=== PATIENT | male | born 1990 | race Caucasian/White ===

== ENCOUNTER 2016-10-20 18:18 | Emergency (ER) | payer OTHER ==
[~2016-10-20] VITALS: Ht 180.3 cm; Wt 136.0 kg
--- NOTE | 2016-10-20 19:24 | REP ---
PA and lateral chest: There are no comparisons. The lung farmer are clear. The cardiac size is normal The adolfo, mediastinum, and bony thorax are unremarkable. Impression: Negative PA and lateral chest. Signed by Silvio Chávez MD 10/20/2016 07:15 P
[2016-10-20] MEDS ORDERED: KETOROLAC 30 MG/ML VIAL (J1885) IV ONE (19:45)
[2016-10-20 19:50] LABS: BASO # 0.1 K/mm3 (0.0-0.2); BASO % 0.5 % (0.0-1.0); EOS # 0.3 K/mm3 (0.0-0.50); EOS % 2.4 % (0.0-3.0); LARGE UNSTAINED CELL # 0.1 K/mm3 (0.0-0.4); LARGE UNSTAINED CELL % 0.8 % (0.0-4.0); LYMPH # 1.7 K/mm3 (1.5-6.5); LYMPH % 12.2 % (24.0-44.0); MEAN CORPUSCULAR HGB CONC 34.7 g/dl (32.0-36.5); MEAN CORPUSCULAR VOLUME 83.6 fl (80.0-96.0); MONO # 0.5 K/mm3 (0.0-0.8); NEUTROPHILS # 10.7 K/mm3 (1.8-7.7); NEUTROPHILS % 80.1 % (36.0-66.0); PLATELET COUNT, AUTOMATED 225 k/mm3 (150-450); RED CELL DISTRIBUTION WIDTH 13.7 % (11.5-14.5); WHITE BLOOD COUNT 13.4 K/mm3 (4.0-10.0)
[2016-10-20 20:17] LABS: ANION GAP 6 MEQ/L (8-16); BLOOD UREA NITROGEN 7 MG/DL (7-18); CALCIUM LEVEL 8.7 MG/DL (8.5-10.1); CARBON DIOXIDE LEVEL 26 MEQ/L (21-32); CHLORIDE LEVEL 103 MEQ/L (98-107); CREATININE FOR GFR 0.88 MG/DL (0.70-1.30); GLOMERULAR FILTRATION RATE > 60.0 (>60); GLUCOSE, FASTING 103 MG/DL (70-105); POTASSIUM SERUM 3.4 MEQ/L (3.5-5.1); SODIUM LEVEL 135 MEQ/L (136-145)
[2016-10-20 21:15] LABS: ABG BASE EXCESS 0.2 (-2.0-2.0); ABG HCO3 23.6 MEQ/L (22.0-26.0); ABG PARTIAL PRESSURE CO2 34.8 mmHg (35.0-45.0); ABG PARTIAL PRESSURE O2 71.6 mmHg (75.0-100.0); ABG STANDARD HCO3 24.6 MEQ/L (22.0-26.0); ABG TOTAL CO2 24.7 MEQ/L (22.0-29.0)
[2016-10-20] MEDS ORDERED: ISOVUE-370 76% 100ML VIAL (Q9967) As Ordered ONE (22:42)
--- NOTE | 2016-10-20 23:10 | REPUSA ---
CT angiogram of the chest Clinical statement: dyspnea. Technique: Multiple axial CT images were obtained from the thoracic inlet through the upper abdomen a fter a bolus administration of nonionic intravenous contrast. Coronal and sagittal reconstructions we re also obtained. Comparison: None. Findings: The pulmonary arteries are well-opacified with contrast, with no intraluminal filling defec ts to suggest embolism. The thoracic aorta is unremarkable. Thyroid gland is within normal limits. Th ere is no thoracic lymphadenopathy. There are no pericardial or pleural effusions. There is a rounded area consolidation in the lateral left upper lobe measuring 4.5 x 3.4 cm. Limited imaging of the upp er abdomen is unremarkable. There are no suspicious osseous lesions. Impression: 1. No evidence of pulmonary embolism. 2. A rounded area consolidation in the lateral left upper lobe, likely representing pneumonia. Follow -up until resolution is recommended.
[2016-10-20] MEDS ORDERED: MORPHINE 4 MG/ML 1ML SYRINGE IV ONE (23:15)
[2016-10-20] MEDS ORDERED: CEFUROXIME SODIUM 1.5 GM in D5W MINI-BAG PLUS 50 ML IV ONE (23:15)
[2016-10-20] MEDS ORDERED: AZITHROMYCIN INJ 500 MG, VIAL MATE ADAPTER 1 EACH in D5W 250 ML IV ONE (23:15)
[2016-10-20] MEDS ORDERED: TRAM50TA2 PO (23:52)
[2016-10-20] MEDS ORDERED: ZITHTAB PO (23:53)
[2016-10-21] MEDS ORDERED: ACETAMINOPHEN TAB 650MG DOSE (2X325MG) As Ordered ONE (01:16)
[2016-10-21 01:23] VITALS: BP 147/67
[2016-10-21] MEDS ORDERED: ACETAMINOPHEN TAB 650MG DOSE (2X325MG) PO ONE (01:30)
--- NOTE | 2016-10-21 08:27 | ECGEPIP ---
Stationary ECG Study [facility] - ED Test Date: 2016-10-20 Pat Name: DAVIE MANCINI Department: Room: - Gender: M [employer]: carlie : 1990 Requested By: AMY Rod Order Number: [id number] Reading MD: Darryl Olea Measurements Intervals [place] Rate: 94 P: 64 DE: 112 QRS: -14 QRSD: 92 T: 47 QT: 311 QTc: 390 Interpretive Statements SINUS RHYTHM WITH SINUS ARRHYTHMIA WITH SHORT DE INTERVAL INC. RBBB NO PRIORS Electronically Signed On 10-21-2016 8:26:33 EDT by Darryl Olea
== END 2016-10-21 01:39 | disposition home or self-care (01) ==
LOC: EDBD 18:18 → M ED 19:19
DX: J18.9 Pneumonia, unspecified organism (principal); J30.1 Allergic rhinitis due to pollen
CPT/HCPCS: 36600; 71020; 71275; 80048; 82550; 82553; 82803; 85025; 93005; 96365; 96367; 96375; 99285; J0456; J0697; J1885; Q9967

== ENCOUNTER → 2016-10-26 | Outpatient (REF) | payer OTHER ==
[~2016-10-26] MED LIST: TRAM50TA2 PO; ZITHTAB PO
[2016-10-26 19:44] LABS: ANION GAP 7 MEQ/L (8-16); BLOOD UREA NITROGEN 10 MG/DL (7-18); CALCIUM LEVEL 8.8 MG/DL (8.5-10.1); CARBON DIOXIDE LEVEL 30 MEQ/L (21-32); CHLORIDE LEVEL 105 MEQ/L (98-107); CREATININE FOR GFR 0.91 MG/DL (0.70-1.30); GLOMERULAR FILTRATION RATE > 60.0 (>60); GLUCOSE, FASTING 105 MG/DL (70-105); POTASSIUM SERUM 3.5 MEQ/L (3.5-5.1); SODIUM LEVEL 142 MEQ/L (136-145)
[2016-10-26 20:02] LABS: BASO % 0.7 % (0.0-1.0); EOS # 0.4 K/mm3 (0.0-0.50); EOS % 5.9 % (0.0-3.0); LARGE UNSTAINED CELL # 0.1 K/mm3 (0.0-0.4); LYMPH # 1.9 K/mm3 (1.5-6.5); LYMPH % 27.8 % (24.0-44.0); MEAN CORPUSCULAR HEMOGLOBIN 28.6 pg (27.0-33.0); MEAN CORPUSCULAR HGB CONC 33.8 g/dl (32.0-36.5); MEAN CORPUSCULAR VOLUME 84.6 fl (80.0-96.0); MONO # 0.2 K/mm3 (0.0-0.8); MONO % 3.8 % (0.0-5.0); NEUTROPHILS # 3.8 K/mm3 (1.8-7.7); NEUTROPHILS % 59.8 % (36.0-66.0); PLATELET COUNT, AUTOMATED 277 k/mm3 (150-450); RED CELL DISTRIBUTION WIDTH 13.4 % (11.5-14.5); WHITE BLOOD COUNT 6.4 K/mm3 (4.0-10.0)
== END ==
LOC: M SFHCPLAZ 15:18
PROVIDERS: ATTEND Physician Assistant Medical
DX: J18.1 Lobar pneumonia, unspecified organism (principal)

== ENCOUNTER → 2016-11-16 | Outpatient (CLI) | payer OTHER ==
--- NOTE | 2016-11-16 16:09 | REP ---
Chest two views HISTORY: Pneumonia Comparison: 10/20/2016 Linear density is present in the left lower lobe consistent with atelectasis or scar. The right lung is clear. . The heart is normal in size. The pulmonary vasculature is normal in appearance. The bony structure is intact. IMPRESSION: Left lower lobe atelectasis or scar. Signed by Shaan Magana MD 11/16/2016 04:01 P
== END ==
LOC: M WUC 15:11
PROVIDERS: ATTEND Physician Assistant Medical
DX: J18.1 Lobar pneumonia, unspecified organism (principal)

== ENCOUNTER 2020-04-01 14:36 | Emergency (ER) | payer MEDICAID, OTHER, SELFPAY ==
[~2020-04-01] VITALS: Ht 177.8 cm; Wt 166.8 kg
[2020-04-01] MEDS ORDERED: LIDOCAINE 4% CREAM 5GM (LMX4) TOP ONE (15:30)
[2020-04-01] MEDS ORDERED: BACT800T5 PO (15:39)
[2020-04-01 16:09] VITALS: BP 141/81
== END 2020-04-01 16:10 | disposition home or self-care (01) ==
LOC: M ED 14:36
DX: L02.31 Cutaneous abscess of buttock (principal); L03.317 Cellulitis of buttock; F17.200 Nicotine dependence, unspecified, uncomplicated; F12.10 Cannabis abuse, uncomplicated

== ENCOUNTER 2021-10-03 06:37 | Emergency (ER) | payer MEDICAID, OTHER ==
[~2021-10-03] VITALS: Ht 180.3 cm; Wt 159.1 kg
[~2021-10-03 06:37] MED LIST changes: +BACT800T5 PO
[2021-10-03 09:28] LABS: BASO # 0.1 10^3/uL (0.0-0.2); BASO % 0.8 % (0.0-1.0); EOS # 0.5 10^3/uL (0.0-0.5); EOS % 3.8 % (0.0-3.0); HEMATOCRIT 46.8 % (42.0-52.0); HEMOGLOBIN 15.3 g/dl (13.5-17.5); LYMPH # 2.3 10^3/uL (1.5-5.0); MEAN CORPUSCULAR HGB CONC 32.7 g/dl (32.0-36.5); MEAN CORPUSCULAR VOLUME 85.6 fl (80.0-96.0); MONO # 0.5 10^3/uL (0.0-0.8); NEUTROPHILS # 8.6 10^3/uL (1.5-8.5); PLATELET COUNT, AUTOMATED 365 10^3/uL (150-450); RED BLOOD COUNT 5.47 10^6/uL (4.30-6.10)
[2021-10-03 10:12] LABS: BLOOD UREA NITROGEN 8 MG/DL (7-18); CALCIUM LEVEL 8.8 MG/DL (8.5-10.1); CARBON DIOXIDE LEVEL 26 MEQ/L (21-32); CHLORIDE LEVEL 108 MEQ/L (98-107); CREATININE FOR GFR 0.71 MG/DL (0.70-1.30); FREE T4 1.05 NG/DL (0.76-1.46); GLOMERULAR FILTRATION RATE > 60.0 (>60); GLUCOSE, FASTING 98 MG/DL (70-100); MAGNESIUM LEVEL 1.9 MG/DL (1.8-2.4); POTASSIUM SERUM 4.2 MEQ/L (3.5-5.1); SODIUM LEVEL 139 MEQ/L (136-145); THYROID STIMULATING HORMONE 0.983 uIU/ML (0.358-3.740)
[2021-10-03 11:00] VITALS: BP 127/65
== END 2021-10-03 11:10 | disposition home or self-care (01) ==
LOC: M ED 06:37
DX: R55 Syncope and collapse (principal); I45.10 Unspecified right bundle-branch block; R94.31 Abnormal electrocardiogram [ECG] [EKG]; E66.9 Obesity, unspecified; J45.909 Unspecified asthma, uncomplicated; F17.200 Nicotine dependence, unspecified, uncomplicated; Z91.030 Bee allergy status

== ENCOUNTER → 2021-10-15 | Outpatient (CLI) | payer OTHER | LOC: M EKG 11:22 | PROVIDERS: ATTEND Family Medicine | DX: R55 Syncope and collapse (principal) ==

== ENCOUNTER → 2022-11-17 | Outpatient (CLI) | payer OTHER | LOC: M WUC 14:04 | PROVIDERS: ATTEND Family Medicine | DX: M25.569 Pain in unspecified knee (principal); M54.50 Low back pain, unspecified; M51.37 Other intervertebral disc degeneration, lumbosacral region ==

== ENCOUNTER → 2023-09-13 | Outpatient (REF) | payer OTHER ==
[2023-09-13 15:25] LABS: HEMOGLOBIN A1c 5.3 % (4.0-6.0)
[2023-09-13 15:33] LABS: ALBUMIN 3.6 G/DL (3.2-5.2); ALKALINE PHOSPHATASE 90 U/L (46-116); ALT/SGPT 30 U/L (7.0-40); AST/SGOT 16 U/L (<34); BILIRUBIN,TOTAL 0.3 MG/DL (0.3-1.2); BLOOD UREA NITROGEN 8 MG/DL (9-23); CALCIUM LEVEL 9.3 MG/DL (8.5-10.1); CARBON DIOXIDE LEVEL 27 MMOL/L (20-31); CHLORIDE LEVEL 104 MMOL/L (98-107); CHOLESTEROL LEVEL 153 MG/DL (<200); CHOLESTEROL RISK RATIO 4.95 (<5); CREATININE FOR GFR 0.74 MG/DL (0.70-1.30); GLOMERULAR FILTRATION RATE > 60.0 (>60); GLUCOSE, FASTING 77 MG/DL (60-100); HDL CHOLESTEROL 30.9 MG/DL (>40); LDL CHOLESTEROL 111.5 MG/DL (<100); NON-HDL-C 122.1 MG/DL; POTASSIUM SERUM 4.5 MMOL/L (3.5-5.1); SODIUM LEVEL 138 MMOL/L (136-145); THYROID STIMULATING HORMONE 0.973 uIU/ML (0.55-4.78); TOTAL PROTEIN 7.3 G/DL (5.7-8.2); TRIGLYCERIDES LEVEL 53 MG/DL (<150)
[2023-09-13 15:34] LABS: TOTAL 25(OH) VITAMIN D 9.4 NG/ML (20.0-100.0)
== END ==
LOC: M LAB REF 13:05
PROVIDERS: ATTEND Physician Assistant
DX: Z11.9 Encounter for screening for infectious and parasitic diseases, unspecified (principal); E66.9 Obesity, unspecified; E55.9 Vitamin D deficiency, unspecified

== ENCOUNTER → 2023-09-19 | Outpatient (CLI) | payer OTHER | LOC: M RAD 08:05 | PROVIDERS: ATTEND Physician Assistant | DX: M51.27 Other intervertebral disc displacement, lumbosacral region (principal) ==

== ENCOUNTER 2023-11-02 14:08 | Outpatient (RCR) | payer OTHER | END 2023-11-05 | LOC: M PT 14:08 | PROVIDERS: ATTEND Physician Assistant | DX: M54.50 Low back pain, unspecified (principal) ==

== ENCOUNTER 2023-11-29 14:06 | Outpatient (RCR) | payer OTHER | END 2023-12-06 | LOC: M PT 14:06 | PROVIDERS: ATTEND Physician Assistant | DX: M54.50 Low back pain, unspecified (principal) ==

== ENCOUNTER 2023-12-27 07:40 | Outpatient (RCR) | payer OTHER | END 2024-01-06 | LOC: M PT 07:40 | PROVIDERS: ATTEND Physician Assistant | DX: M54.50 Low back pain, unspecified (principal) ==

== ENCOUNTER → 2024-04-16 | Outpatient (CLI) | payer OTHER ==
[2024-04-16 10:29] LABS: HEMATOCRIT 44.9 % (42.0-52.0); HEMOGLOBIN 14.6 g/dl (13.5-17.5); MEAN CORPUSCULAR HGB CONC 32.5 g/dl (32.0-36.5); PLATELET COUNT, AUTOMATED 313 10^3/uL (150-450); RED BLOOD COUNT 5.22 10^6/uL (4.30-6.10); WHITE BLOOD COUNT 10.7 10^3/uL (4.0-10.0)
[2024-04-16 10:55] LABS: ALBUMIN 3.4 G/DL (3.2-5.2); ALKALINE PHOSPHATASE 84 U/L (40-129); ALT/SGPT 20 U/L (7.0-40); AST/SGOT < 8 U/L (<34); BILIRUBIN,TOTAL 0.4 MG/DL (0.3-1.2); BLOOD UREA NITROGEN 6 MG/DL (9-23); CALCIUM LEVEL 9.7 MG/DL (8.5-10.1); CARBON DIOXIDE LEVEL 28 MMOL/L (20-31); CHLORIDE LEVEL 105 MMOL/L (98-107); CREATININE FOR GFR 0.64 MG/DL (0.70-1.30); GLOMERULAR FILTRATION RATE > 60.0 (>60); GLUCOSE, FASTING 93 MG/DL (60-100); POTASSIUM SERUM 4.2 MMOL/L (3.5-5.1); SODIUM LEVEL 141 MMOL/L (136-145); TOTAL PROTEIN 7.4 G/DL (5.7-8.2)
[2024-04-16 10:57] LABS: HEPATITIS B SURFACE ANTIBODY NEGATIVE (POSITIVE)
[2024-04-16 11:09] LABS: HEPATITIS B SURFACE ANTIGEN NEGATIVE (NEGATIVE)
[2024-04-16 11:23] LABS: HIV 1&2 SCREEN NEGATIVE (NEGATIVE)
[2024-04-16 11:30] LABS: HEPATITIS C VIRUS ABY INDEX 0.03 INDEX (<0.8)
[2024-04-17 13:48] LABS: HEPATITIS B CORE ANTIBODY IGG NON-REACTIVE (NON-REACTIVE)
[2024-04-18 08:34] LABS: QuantiFERON-TB Gold Plus NEGATIVE (NEGATIVE)
== END ==
LOC: M LAB 08:45
PROVIDERS: ATTEND Physician Assistant
DX: L73.2 Hidradenitis suppurativa (principal)

== ENCOUNTER → 2024-09-05 | Outpatient (CLI) | payer OTHER | LOC: M RAD 10:38 | PROVIDERS: ATTEND Physician Assistant | DX: M54.50 Low back pain, unspecified (principal) ==

== ENCOUNTER → 2024-09-18 | Outpatient (CLI) | payer OTHER | LOC: M PLAIMG 14:51 | PROVIDERS: ATTEND Physician Assistant | DX: M51.26 Other intervertebral disc displacement, lumbar region (principal); G89.29 Other chronic pain ==

== ENCOUNTER → 2025-01-30 | Outpatient (CLI) | payer OTHER | LOC: M PLAIMG 09:24 | PROVIDERS: ATTEND Physician Assistant | DX: R19.00 Intra-abdominal and pelvic swelling, mass and lump, unspecified site (principal) ==

== ENCOUNTER → 2025-03-11 | Outpatient (REF) | payer OTHER | LOC: M SFHCDERM 16:33 | PROVIDERS: ATTEND Physician Assistant | DX: L73.2 Hidradenitis suppurativa (principal) ==